=== PATIENT | male | born 1935 | race Caucasian/White ===

== ENCOUNTER 2019-03-22 14:03 | Inpatient (IN) ==
[2019-03-22 15:53] LABS: Bilirubin,Urine Moderate (Negative); Blood,Urine Small (Negative); Clarity,Urine Turbid (Clear); Color,Urine Orange (Yellow); Glucose,Urine (UA) Normal (Normal); Hyaline Casts,Urine Few per lpf (None-Few); Leukocyte Esterase,Urine Small (Negative); Nitrite,Urine Positive (Negative); Protein,Urine 30 mg/dL (Neg-Trace); Specific Gravity,Urine 1.025 (1.010-1.025); Urobilinogen,Urine Normal (Normal); WBC,Urine 0-3 per hpf (0-3)
[2019-03-22 15:55] LABS: Ketones,Urine Trace mg/dL (Negative)
[2019-03-22 16:03] LABS: Basophils # 0.1 K/mcL (0.0-0.2); Basophils % 0.8 %; Hematocrit 41.8 % (37.5-50.1); Immature Granulocytes % 0.3 % (0-4); Lymphocytes # 0.7 K/mcL (0.6-4.6); Lymphocytes % 6.3 %; Mean Corpuscular HGB Conc 35.9 g/dL (31.6-35.5); Mean Corpuscular Hemoglobin 31.3 pg (28.0-33.3); Mean Corpuscular Volume 87.1 fL (83.0-100.0); Mean Platelet Volume 9.5 fL (9.4-12.4); Monocytes # 0.4 K/mcL (0.0-1.3); Monocytes % 3.7 %; Neutrophils # 10.5 K/mcL (1.6-8.9); Nucleated Red Blood Cells 0.2 /100 WBC (0); Platelet Count 246 K/mcL (140-400); Red Cell Distribution Width 14.7 % (11.5-14.5); Segmented Neutrophils % 88.9 %; White Blood Count 11.8 K/mcL (4.3-11.1)
[2019-03-22 16:28] LABS: Albumin 3.3 g/dL (3.5-5.7); Bilirubin,Total 2.9 mg/dL (0.3-1.0); Calcium 9.1 mg/dL (8.6-10.3); Globulin 3.4 g/dL (2.4-3.5); Magnesium 2.4 mg/dL (1.6-2.6); Potassium 4.8 mEq/L (3.5-5.1); Total Protein 6.7 g/dL (6.4-8.9); Troponin I 0.07 ng/mL (< 0.04)
[2019-03-22 16:29] LABS: INR 1.2; Prothrombin Time 13.4 Seconds (9.4-12.1)
[2019-03-22] MEDS ORDERED: cefTRIAXone 1,000 MG in Water for inj. (sterile) 10 ML IVP ONE (16:34)
[2019-03-22] MEDS ORDERED: MetroNIDAZOLE 500 MG/100 ML 500 MG/100 ML BAG IVPB ONE (16:34)
[2019-03-22] MEDS ORDERED: 0.9 % Sodium Chloride 1,000 ML IVC ONE (16:35)
[2019-03-22 16:42] LABS: Squamous Epithelial Cell,Urine Few per lpf (None-Few)
[2019-03-22 16:43] LABS: Amorphous Sediment,Urine Few (Few); Granular Casts,Urine Few per lpf (None Seen); RBC,Urine 0-3 per hpf (0-3)
[2019-03-22 16:44] LABS: Bacteria,Urine Few per hpf (None-Few)
[2019-03-22 16:51] LABS: Platelet Estimate Normal (Normal)
[2019-03-22 16:53] LABS: Thyroid Stimulating Hormone 1.874 mcIU/mL (0.340-5.600)
[2019-03-22] MEDS ORDERED: Naloxone 0.4 MG/ML INJ IVP PRN (17:41)
[2019-03-22] MEDS ORDERED: *HR* HYDROcodone/Acet 5/325 mg TABLET PO PRN (17:41)
[2019-03-22] MEDS ORDERED: Ringers Solution, Lactated 1,000 ML IVC SCH (17:45)
[2019-03-22] MEDS ORDERED: Albuterol 2.5 MG/3 ML NEBULIZER IH PRN (17:48)
[2019-03-22] MEDS ORDERED: 0.9 % Sodium Chloride 500 ML IVC ONE (18:44)
[2019-03-22] MEDS: Piperacillin/Tazobactam 3.375 GM in 0.9 % Sodium Chloride Mini Bag 100 ML IVPB SCH (21:07)
[2019-03-22] MEDS: *HR* Heparin 5,000 UNIT/ML VIAL SQ SCH (21:08)
[2019-03-23] MEDS ORDERED: 0.9 % Sodium Chloride 500 ML IVC ONE ×2 (01:28→02:55)
[2019-03-23 03:41] LABS: Basophils % 0.3 %; Hematocrit 32.6 % (37.5-50.1); Hemoglobin 11.9 g/dL (12.9-16.9); Immature Granulocytes % 0.7 % (0-4); Lymphocytes # 1.2 K/mcL (0.6-4.6); Lymphocytes % 10.7 %; Mean Corpuscular HGB Conc 36.5 g/dL (31.6-35.5); Mean Corpuscular Volume 84.9 fL (83.0-100.0); Mean Platelet Volume 9.4 fL (9.4-12.4); Monocytes # 0.5 K/mcL (0.0-1.3); Monocytes % 4.5 %; Platelet Count 185 K/mcL (140-400); Red Blood Count 3.84 M/mcL (4.19-5.50); Red Cell Distribution Width 14.6 % (11.5-14.5); Segmented Neutrophils % 83.8 %; White Blood Count 11.3 K/mcL (4.3-11.1)
[2019-03-23 03:42] LABS: Neutrophils # 9.5 K/mcL (1.6-8.9)
[2019-03-23 03:57] LABS: Platelet Estimate Normal (Normal)
[2019-03-23 04:01] LABS: Albumin 2.6 g/dL (3.5-5.7); Calcium 7.7 mg/dL (8.6-10.3); Globulin 2.6 g/dL (2.4-3.5); Magnesium 2.2 mg/dL (1.6-2.6); Phosphorous 4.3 mg/dL (2.7-4.5); Potassium 3.7 mEq/L (3.5-5.1); Total Protein 5.2 g/dL (6.4-8.9)
[2019-03-23 04:41] LABS: Hepatitis B Surface Antigen Nonreactive (Nonreactive)
[2019-03-23 05:10] LABS: Hepatitis C Virus Antibody Nonreactive (Nonreactive)
[2019-03-23 05:11] LABS: Hepatitis B Core IgM Nonreactive (Nonreactive)
[2019-03-23 05:12] LABS: Hepatitis A Antibody IgM Nonreactive (Nonreactive)
[2019-03-23] MEDS: *HR* Heparin 5,000 UNIT/ML VIAL SQ SCH ×2 (05:59→17:10)
[2019-03-23] MEDS: Piperacillin/Tazobactam 3.375 GM in 0.9 % Sodium Chloride Mini Bag 100 ML IVPB SCH ×2 (06:00→17:22)
[2019-03-23] MEDS ORDERED: Ringers Solution, Lactated 1,000 ML IVC SCH (08:36)
[2019-03-23] MEDS: Pantoprazole 40 MG VIAL IVP SCH (11:36)
[2019-03-23] MEDS ORDERED: Dextrose Gel 15 GM/37.5 ML TUBE PO PRN ×2 (15:04)
[2019-03-23] MEDS ORDERED: D5% in Water 1,000 ML IVC PRN (15:04)
[2019-03-23] MEDS ORDERED: *HR* Dextrose 50 % in Water (Syg) 50 ML SYRINGE IVP PRN (15:04)
[2019-03-23] MEDS: D5% in Lactated Ringers 1,000 ML IVC SCH (15:47)
[2019-03-23] MEDS: Insulin LISPRO 300 UNITS/3 ML VIAL SQ SCH (17:11)
[2019-03-24] MEDS: Insulin LISPRO 300 UNITS/3 ML VIAL SQ SCH ×4 (00:57→17:54)
[2019-03-24 03:55] LABS: Hematocrit 30.2 % (37.5-50.1); Hemoglobin 11.2 g/dL (12.9-16.9); Mean Corpuscular Hemoglobin 31.5 pg (28.0-33.3); Mean Corpuscular Volume 84.8 fL (83.0-100.0); Mean Platelet Volume 9.9 fL (9.4-12.4); Platelet Count 178 K/mcL (140-400); Red Blood Count 3.56 M/mcL (4.19-5.50); Red Cell Distribution Width 14.6 % (11.5-14.5); White Blood Count 10.4 K/mcL (4.3-11.1)
[2019-03-24 04:00] LABS: Mean Corpuscular HGB Conc 37.1 g/dL (31.6-35.5)
[2019-03-24 04:18] LABS: Calcium 7.8 mg/dL (8.6-10.3); Magnesium 2.3 mg/dL (1.6-2.6); Phosphorous 3.7 mg/dL (2.7-4.5); Potassium 3.6 mEq/L (3.5-5.1)
[2019-03-24 05:06] LABS: Lymphocytes # 1.7 K/mcL (0.6-4.6); Monocytes # 0.2 K/mcL (0.0-1.3); Neutrophils # 8.5 K/mcL (1.6-8.9)
[2019-03-24 05:07] LABS: Platelet Estimate Normal (Normal)
[2019-03-24] MEDS: *HR* Heparin 5,000 UNIT/ML VIAL SQ SCH (06:38)
[2019-03-24] MEDS: Piperacillin/Tazobactam 3.375 GM in 0.9 % Sodium Chloride Mini Bag 100 ML IVPB SCH (06:42)
[2019-03-24] MEDS: Pantoprazole 40 MG VIAL IVP SCH (09:26)
[2019-03-24] MEDS: Cyanocobalamin (B-12) 1,000 MCG TABLET PO SCH (09:26)
[2019-03-24 10:25] LABS: Albumin 2.5 g/dL (3.5-5.7); Bilirubin,Total 1.8 mg/dL (0.3-1.0); Calcium 7.8 mg/dL (8.6-10.3); Globulin 2.4 g/dL (2.4-3.5); Potassium 3.6 mEq/L (3.5-5.1); Total Protein 4.9 g/dL (6.4-8.9)
[2019-03-24] MEDS ORDERED: Piperacillin/Tazobactam 3.375 GM in 0.9 % Sodium Chloride Mini Bag 100 ML IVPB SCH (16:00)
[2019-03-24] MEDS ORDERED: *HR* FentaNYL (PF) 100 MCG/2 ML VIAL ONE (16:09)
[2019-03-24] MEDS ORDERED: *HR* Propofol 200 MG/20 ML VIAL IVP ONE (16:09)
[2019-03-24] MEDS ORDERED: Lidocaine HCL 4 ML Topical Solution (Laryng-O-Jet Kit Sterile Pak) TP ONE (16:13)
[2019-03-24] MEDS ORDERED: *HR* Succinylcholine 200 MG/10 ML VIAL IVP ONE (16:13)
[2019-03-24] MEDS ORDERED: Lidocaine -MPF 2% 2 ML VIAL ONE (16:13)
[2019-03-24] MEDS ORDERED: Ondansetron 4 MG/2 ML VIAL ONE (16:13)
[2019-03-24] MEDS ORDERED: Indomethacin 50 MG SUPP.RECT RC ONE (17:12)
[2019-03-24] MEDS ORDERED: *HR* PHENYLEPHRINE 1,000 MCG/10 ML SYRINGE IVP ONE (17:25)
[2019-03-24] MEDS ORDERED: *HR* Metoprolol 5 MG/5 ML VIAL IVP PRN (19:51)
[2019-03-24] MEDS: Nystatin SUSP 5 ML UD.LIQ PO SCH (21:53)
[2019-03-24] MEDS: D5% in Lactated Ringers 1,000 ML IVC SCH (21:54)
[2019-03-25 05:07] LABS: Basophils % 0.1 %; Eosinophils # 0.2 K/mcL (0.0-0.6); Eosinophils % 1.6 %; Hematocrit 30.5 % (37.5-50.1); Hemoglobin 10.7 g/dL (12.9-16.9); Lymphocytes # 1.3 K/mcL (0.6-4.6); Mean Corpuscular HGB Conc 35.1 g/dL (31.6-35.5); Mean Corpuscular Hemoglobin 31.1 pg (28.0-33.3); Mean Corpuscular Volume 88.7 fL (83.0-100.0); Mean Platelet Volume 10.2 fL (9.4-12.4); Monocytes # 0.4 K/mcL (0.0-1.3); Platelet Count 157 K/mcL (140-400); Red Blood Count 3.44 M/mcL (4.19-5.50); Segmented Neutrophils % 73.3 %; White Blood Count 10.3 K/mcL (4.3-11.1)
[2019-03-25] MEDS: Insulin LISPRO 300 UNITS/3 ML VIAL SQ SCH ×3 (05:11→20:18)
[2019-03-25 05:14] LABS: Neutrophils # 7.6 K/mcL (1.6-8.9)
[2019-03-25] MEDS: Piperacillin/Tazobactam 3.375 GM in 0.9 % Sodium Chloride Mini Bag 100 ML IVPB SCH ×3 (05:18→22:21)
[2019-03-25 05:26] LABS: Albumin 2.5 g/dL (3.5-5.7); Albumin/Globulin Ratio 1.1 (1.1-2.2); Bilirubin,Direct 0.7 mg/dL (0.0-0.2); Bilirubin,Total 1.7 mg/dL (0.3-1.0); Calcium 8.1 mg/dL (8.6-10.3); Globulin 2.3 g/dL (2.4-3.5); Potassium 3.8 mEq/L (3.5-5.1); Total Protein 4.8 g/dL (6.4-8.9)
[2019-03-25 05:27] LABS: Magnesium 2.1 mg/dL (1.6-2.6); Phosphorous 4.4 mg/dL (2.7-4.5)
[2019-03-25 06:01] LABS: Platelet Estimate Normal (Normal); Reactive Lymphocytes Present (Not Present)
[2019-03-25] MEDS: Cyanocobalamin (B-12) 1,000 MCG TABLET PO SCH (10:16)
[2019-03-25] MEDS: Nystatin SUSP 5 ML UD.LIQ PO SCH ×4 (10:16→20:33)
[2019-03-25] MEDS ORDERED: *HR* FentaNYL (PF) 100 MCG/2 ML VIAL ONE (17:23)
[2019-03-25] MEDS ORDERED: *HR* Propofol 200 MG/20 ML VIAL IVP ONE (17:23)
[2019-03-25] MEDS ORDERED: Lidocaine -MPF 2% 2 ML VIAL ONE (17:24)
[2019-03-25] MEDS ORDERED: *HR* Succinylcholine 200 MG/10 ML VIAL IVP ONE (17:24)
[2019-03-25] MEDS ORDERED: *HR* Rocuronium Bromide 50 MG/5 ML VIAL ONE (17:24)
[2019-03-25] MEDS ORDERED: Lidocaine HCL 4 ML Topical Solution (Laryng-O-Jet Kit Sterile Pak) TP ONE (17:31)
[2019-03-25] MEDS ORDERED: Bupivacaine/EPI 1:200k 0.5%PF 30 ML VIAL ONE (17:43)
[2019-03-25] MEDS ORDERED: Morphine Sulfate 2 MG/ML SYRINGE IVP PRN (17:44)
[2019-03-25] MEDS ORDERED: Ondansetron 4 MG/2 ML VIAL IVP ONE (17:44)
[2019-03-25] MEDS ORDERED: *HR* Metoprolol 5 MG/5 ML VIAL IVP ONE (18:17)
[2019-03-25] MEDS ORDERED: Acetaminophen IV 1,000 MG/100 ML INFUS..BTL ONE (18:38)
[2019-03-25] MEDS ORDERED: *HR* OxyCODONE Immed Rel 5 MG TABLET PO ONE (19:32)
[2019-03-25] MEDS: *HR* Heparin 5,000 UNIT/ML VIAL SQ SCH (20:19)
[2019-03-25] MEDS: D5% in Lactated Ringers 1,000 ML IVC SCH (20:30)
[2019-03-25] MEDS ORDERED: 0.9 % Sodium Chloride 500 ML IVC ONE (22:16)
[2019-03-25] MEDS ORDERED: D5% in Water 1,000 ML IVC PRN (22:34)
[2019-03-25] MEDS ORDERED: *HR* Dextrose 50 % in Water (Syg) 50 ML SYRINGE IVP PRN (22:34)
[2019-03-25] MEDS ORDERED: D5% in Lactated Ringers 1,000 ML IVC SCH (22:34)
[2019-03-25] MEDS ORDERED: *HR* Metoprolol 5 MG/5 ML VIAL IVP PRN (22:34)
[2019-03-25] MEDS ORDERED: Albuterol 2.5 MG/3 ML NEBULIZER IH PRN (22:34)
[2019-03-25] MEDS ORDERED: Naloxone 0.4 MG/ML INJ IVP PRN (22:34)
[2019-03-25] MEDS ORDERED: Dextrose Gel 15 GM/37.5 ML TUBE PO PRN ×2 (22:34)
[2019-03-26] MEDS: Insulin LISPRO 300 UNITS/3 ML VIAL SQ SCH ×4 (00:57→18:02)
[2019-03-26] MEDS: 0.9 % Sodium Chloride 500 ML IVC ONE ×2 (02:17→03:35)
[2019-03-26 02:49] LABS: Hematocrit 31.3 % (37.5-50.1); Hemoglobin 11.1 g/dL (12.9-16.9); Mean Corpuscular HGB Conc 35.5 g/dL (31.6-35.5); Mean Corpuscular Volume 87.4 fL (83.0-100.0); Mean Platelet Volume 10.4 fL (9.4-12.4); Platelet Count 163 K/mcL (140-400); Red Blood Count 3.58 M/mcL (4.19-5.50); White Blood Count 13.5 K/mcL (4.3-11.1)
[2019-03-26 03:58] LABS: Lymphocytes # 1.6 K/mcL (0.6-4.6); Monocytes # 0.5 K/mcL (0.0-1.3); Neutrophils # 10.5 K/mcL (1.6-8.9); Platelet Estimate Normal (Normal); Toxic Granulation Present (Not Present)
[2019-03-26] MEDS: Acetaminophen IV 1,000 MG/100 ML INFUS..BTL IVPB SCH ×4 (04:58→18:12)
[2019-03-26] MEDS: *HR* Heparin 5,000 UNIT/ML VIAL SQ SCH ×2 (05:31→18:11)
[2019-03-26] MEDS: Piperacillin/Tazobactam 3.375 GM in 0.9 % Sodium Chloride Mini Bag 100 ML IVPB SCH ×3 (05:31→21:31)
[2019-03-26] MEDS ORDERED: Albumin 25% 25gram/100mL 25 GM/100 ML IV.SOLN IVPB ONE (07:50)
[2019-03-26] MEDS: Cyanocobalamin (B-12) 1,000 MCG TABLET PO SCH (09:55)
[2019-03-26] MEDS: Nystatin SUSP 5 ML UD.LIQ PO SCH ×4 (11:10→20:34)
[2019-03-27] MEDS: Acetaminophen IV 1,000 MG/100 ML INFUS..BTL IVPB SCH ×4 (01:03→17:32)
[2019-03-27] MEDS: Insulin LISPRO 300 UNITS/3 ML VIAL SQ SCH (01:03)
[2019-03-27] MEDS ORDERED: Hydrocortisone Rectal 2.5% CRM 28 GM TUBE RC PRN (01:58)
[2019-03-27 03:57] LABS: Hemoglobin 10.5 g/dL (12.9-16.9); Mean Corpuscular HGB Conc 33.9 g/dL (31.6-35.5); Mean Corpuscular Hemoglobin 30.8 pg (28.0-33.3); Mean Corpuscular Volume 90.9 fL (83.0-100.0); Mean Platelet Volume 10.8 fL (9.4-12.4); Platelet Count 192 K/mcL (140-400); Red Blood Count 3.41 M/mcL (4.19-5.50); Red Cell Distribution Width 15.2 % (11.5-14.5); White Blood Count 14.5 K/mcL (4.3-11.1)
[2019-03-27 04:06] LABS: BUN/Creatinine Ratio 38 (6-26); Blood Urea Nitrogen 41 mg/dL (8-23); Calcium 7.9 mg/dL (8.6-10.3); Carbon Dioxide 17 mEq/L (23-29); Chloride 116 mEq/L (98-107); Glucose 105 mg/dL (70-105); Magnesium 1.7 mg/dL (1.6-2.6); Osmolality,Calculated 304 (280-300); Phosphorous 2.7 mg/dL (2.7-4.5); Potassium 3.8 mEq/L (3.5-5.1); Sodium 142 mEq/L (136-145); eGFR For African Americans > 60 (> 60); eGFR For Non-African Americans > 60 (> 60)
[2019-03-27 04:40] LABS: Eosinophils # 0.3 K/mcL (0.0-0.6); Lymphocytes # 1.7 K/mcL (0.6-4.6); Neutrophils # 12.5 K/mcL (1.6-8.9)
[2019-03-27 04:41] LABS: Platelet Estimate Normal (Normal); Reactive Lymphocytes Present (Not Present)
[2019-03-27] MEDS: *HR* Heparin 5,000 UNIT/ML VIAL SQ SCH ×2 (06:03→17:42)
[2019-03-27] MEDS: Piperacillin/Tazobactam 3.375 GM in 0.9 % Sodium Chloride Mini Bag 100 ML IVPB SCH ×3 (06:03→22:06)
[2019-03-27] MEDS: *HR* OxyCODONE/APAP 5/325 TABLET PO PRN ×2 (09:04→15:20)
[2019-03-27] MEDS: Nystatin SUSP 5 ML UD.LIQ PO SCH ×4 (09:06→20:43)
[2019-03-27] MEDS: Cyanocobalamin (B-12) 1,000 MCG TABLET PO SCH (09:06)
[2019-03-27 14:24] LABS: INR 1.4; Prothrombin Time 15.5 Seconds (9.4-12.1)
[2019-03-27] MEDS ORDERED: Isovue-370 500 ML BOTTLE IVP ONE (16:48)
[2019-03-28 03:40] LABS: Hematocrit 32.8 % (37.5-50.1); Hemoglobin 11.5 g/dL (12.9-16.9); Mean Corpuscular HGB Conc 35.1 g/dL (31.6-35.5); Mean Corpuscular Hemoglobin 31.1 pg (28.0-33.3); Mean Corpuscular Volume 88.6 fL (83.0-100.0); Mean Platelet Volume 10.5 fL (9.4-12.4); Platelet Count 238 K/mcL (140-400); Red Cell Distribution Width 15.4 % (11.5-14.5); White Blood Count 17.2 K/mcL (4.3-11.1)
[2019-03-28 04:06] LABS: BUN/Creatinine Ratio 34 (6-26); Blood Urea Nitrogen 33 mg/dL (8-23); Calcium 8.1 mg/dL (8.6-10.3); Carbon Dioxide 17 mEq/L (23-29); Chloride 111 mEq/L (98-107); Glucose 106 mg/dL (70-105); Magnesium 1.6 mg/dL (1.6-2.6); Osmolality,Calculated 290 (280-300); Phosphorous 2.5 mg/dL (2.7-4.5); Potassium 3.9 mEq/L (3.5-5.1); Sodium 136 mEq/L (136-145); eGFR For African Americans > 60 (> 60); eGFR For Non-African Americans > 60 (> 60)
[2019-03-28 04:07] LABS: Lymphocytes # 1.7 K/mcL (0.6-4.6); Monocytes # 1.4 K/mcL (0.0-1.3); Neutrophils # 14.1 K/mcL (1.6-8.9); Platelet Estimate Normal (Normal); Reactive Lymphocytes Present (Not Present)
[2019-03-28 04:08] LABS: Anisocytosis 1+ (Not Present)
[2019-03-28] MEDS: Piperacillin/Tazobactam 3.375 GM in 0.9 % Sodium Chloride Mini Bag 100 ML IVPB SCH ×3 (05:34→21:30)
[2019-03-28] MEDS: *HR* Heparin 5,000 UNIT/ML VIAL SQ SCH ×2 (05:35→17:06)
[2019-03-28] MEDS: Cyanocobalamin (B-12) 1,000 MCG TABLET PO SCH (08:49)
[2019-03-28] MEDS: Nystatin SUSP 5 ML UD.LIQ PO SCH ×4 (08:49→21:19)
[2019-03-28] MEDS: *HR* OxyCODONE/APAP 5/325 TABLET PO PRN (12:09)
[2019-03-29 05:53] LABS: Hematocrit 32.3 % (37.5-50.1); Hemoglobin 11.2 g/dL (12.9-16.9); Mean Corpuscular HGB Conc 34.7 g/dL (31.6-35.5); Mean Corpuscular Hemoglobin 30.7 pg (28.0-33.3); Mean Corpuscular Volume 88.5 fL (83.0-100.0); Mean Platelet Volume 10.3 fL (9.4-12.4); Platelet Count 297 K/mcL (140-400); Red Blood Count 3.65 M/mcL (4.19-5.50); Red Cell Distribution Width 15.4 % (11.5-14.5); White Blood Count 16.6 K/mcL (4.3-11.1)
[2019-03-29] MEDS: Piperacillin/Tazobactam 3.375 GM in 0.9 % Sodium Chloride Mini Bag 100 ML IVPB SCH ×3 (06:00→22:10)
[2019-03-29 06:10] LABS: BUN/Creatinine Ratio 36 (6-26); Blood Urea Nitrogen 36 mg/dL (8-23); Calcium 7.9 mg/dL (8.6-10.3); Carbon Dioxide 18 mEq/L (23-29); Chloride 112 mEq/L (98-107); Glucose 95 mg/dL (70-105); Magnesium 1.7 mg/dL (1.6-2.6); Osmolality,Calculated 296 (280-300); Sodium 139 mEq/L (136-145); eGFR For African Americans > 60 (> 60); eGFR For Non-African Americans > 60 (> 60)
[2019-03-29 06:27] LABS: Monocytes # 0.3 K/mcL (0.0-1.3); Neutrophils # 13.9 K/mcL (1.6-8.9)
[2019-03-29 06:28] LABS: Platelet Estimate Normal (Normal)
[2019-03-29] MEDS: Cyanocobalamin (B-12) 1,000 MCG TABLET PO SCH (08:30)
[2019-03-29] MEDS: Nystatin SUSP 5 ML UD.LIQ PO SCH ×4 (08:31→21:11)
[2019-03-29] MEDS: *HR* Heparin 5,000 UNIT/ML VIAL SQ SCH ×2 (08:31→17:41)
[2019-03-29] MEDS: Lactobacillus 1 EACH CAP.SPRINK PO SCH (21:11)
[2019-03-30] MEDS ORDERED: Acetaminophen IV 1,000 MG/100 ML INFUS..BTL IVPB SCH (01:15)
[2019-03-30] MEDS ORDERED: Acetaminophen IV 1,000 MG/100 ML INFUS..BTL IVPB ONE (01:30)
[2019-03-30] MEDS: Piperacillin/Tazobactam 3.375 GM in 0.9 % Sodium Chloride Mini Bag 100 ML IVPB SCH (05:54)
[2019-03-30] MEDS: *HR* Heparin 5,000 UNIT/ML VIAL SQ SCH (05:56)
[2019-03-30 06:50] LABS: Basophils # 0.2 K/mcL (0.0-0.2); Eosinophils # 0.2 K/mcL (0.0-0.6); Hematocrit 32.1 % (37.5-50.1); Hemoglobin 11.2 g/dL (12.9-16.9); Immature Granulocytes % 6.6 % (0-4); Lymphocytes # 1.8 K/mcL (0.6-4.6); Lymphocytes % 11.5 %; Mean Corpuscular HGB Conc 34.9 g/dL (31.6-35.5); Mean Corpuscular Hemoglobin 30.9 pg (28.0-33.3); Mean Corpuscular Volume 88.7 fL (83.0-100.0); Monocytes % 6.2 %; Neutrophils # 11.6 K/mcL (1.6-8.9); Platelet Count 334 K/mcL (140-400); Red Blood Count 3.62 M/mcL (4.19-5.50); Red Cell Distribution Width 15.3 % (11.5-14.5); Segmented Neutrophils % 73.7 %; White Blood Count 15.7 K/mcL (4.3-11.1)
[2019-03-30 07:10] LABS: BUN/Creatinine Ratio 38 (6-26); Blood Urea Nitrogen 34 mg/dL (8-23); Calcium 7.9 mg/dL (8.6-10.3); Carbon Dioxide 18 mEq/L (23-29); Chloride 115 mEq/L (98-107); Glucose 111 mg/dL (70-105); Magnesium 1.6 mg/dL (1.6-2.6); Osmolality,Calculated 302 (280-300); Potassium 3.9 mEq/L (3.5-5.1); Sodium 142 mEq/L (136-145); eGFR For African Americans > 60 (> 60); eGFR For Non-African Americans > 60 (> 60)
[2019-03-30 07:11] LABS: Albumin 2.2 g/dL (3.5-5.7); Albumin/Globulin Ratio 0.9 (1.1-2.2); Bilirubin,Direct 0.4 mg/dL (0.0-0.2); Bilirubin,Indirect 0.7 mg/dL (0.0-1.0); Bilirubin,Total 1.1 mg/dL (0.3-1.0); Globulin 2.4 g/dL (2.4-3.5); Phosphorous 2.6 mg/dL (2.7-4.5); Total Protein 4.6 g/dL (6.4-8.9)
[2019-03-30 07:25] LABS: Platelet Estimate Normal (Normal); Reactive Lymphocytes Present (Not Present)
[2019-03-30] MEDS: Cyanocobalamin (B-12) 1,000 MCG TABLET PO SCH (09:31)
[2019-03-30] MEDS: Lactobacillus 1 EACH CAP.SPRINK PO SCH (09:31)
[2019-03-30] MEDS: Nystatin SUSP 5 ML UD.LIQ PO SCH ×2 (09:31→12:31)
[2019-03-30] MEDS ORDERED: Haloperidol Oral Conc 10 MG/5 ML UDC PO PRN (11:38)
[2019-03-30] MEDS ORDERED: Saliva Stimulant 100ml BOTTLE PO PRN (15:51)
[2019-03-31] MEDS: Morphine Sulfate Oral CONC 10 MG/0.5 ML ORAL.SYG SL PRN ×6 (01:58→15:23)
[2019-03-31] MEDS: *HR* LORazepam Oral Conc 2 MG/ML SL PRN (16:20)
[2019-04-01] MEDS: Morphine Sulfate Oral CONC 10 MG/0.5 ML ORAL.SYG SL PRN ×8 (01:58→19:43)
[2019-04-01] MEDS: *HR* LORazepam Oral Conc 2 MG/ML SL PRN ×4 (02:41→21:52)
[2019-04-01] MEDS: Haloperidol Oral Conc 10 MG/5 ML UDC PO SCH ×2 (14:28→15:20)
[2019-04-01] MEDS ORDERED: Atropine Sulfate 1% 40 DROP/2 ML BOTTLE SL PRN (21:13)
[2019-04-01] MEDS ORDERED: Scopolamine Patch 1.5 MG PATCH.TD72 TD ONE (21:14)
[2019-04-01] MEDS: Morphine Sulfate Oral CONC 10 MG/0.5 ML ORAL.SYG SL SCH (22:38)
[2019-04-02] MEDS: Morphine Sulfate Oral CONC 10 MG/0.5 ML ORAL.SYG SL SCH ×4 (01:34→10:27)
[2019-04-02] MEDS: *HR* LORazepam Oral Conc 2 MG/ML SL PRN (04:56)
[2019-04-02 06:58] VITALS: BP 93/64
== END 2019-04-02 12:09 | disposition hospice, inpatient (51) | DRG 854 ==
LOC: 2NENU 14:03 → EMEROOARM 14:03 → 2NENU 18:48 → SUATTDRO 03-23 11:59
PROVIDERS: ADMIT Internal Medicine; ATTEND Internal Medicine

== ENCOUNTER 2019-04-02 10:41 | Inpatient (IN) ==
[2019-04-02] MEDS ORDERED: Saliva Stimulant 100ml BOTTLE PO PRN (13:53)
[2019-04-02] MEDS ORDERED: Scopolamine Patch 1.5 MG PATCH.TD72 TD SCH (14:00)
[2019-04-02] MEDS ORDERED: Morphine Sulfate Oral CONC 10 MG/0.5 ML ORAL.SYG PO SCH ×3 (14:15→15:00)
[2019-04-02] MEDS: *HR* LORazepam Oral Conc 2 MG/ML PO PRN ×2 (14:20→20:14)
[2019-04-02] MEDS: Morphine Sulfate Oral CONC 10 MG/0.5 ML ORAL.SYG PO SCH ×4 (14:20→23:15)
[2019-04-02] MEDS: Atropine Sulfate 1% 40 DROP/2 ML BOTTLE SL PRN ×3 (18:05→23:21)
[2019-04-03] MEDS: Morphine Sulfate Oral CONC 10 MG/0.5 ML ORAL.SYG PO SCH ×7 (02:12→21:44)
[2019-04-03] MEDS ORDERED: Acetaminophen 650 MG RECTAL SUPP RC PRN (08:43)
[2019-04-03] MEDS: Atropine Sulfate 1% 40 DROP/2 ML BOTTLE SL PRN ×4 (10:04→21:45)
[2019-04-03] MEDS: *HR* LORazepam Oral Conc 2 MG/ML PO PRN ×4 (13:13→21:44)
[2019-04-03 20:42] VITALS: BP 113/75
== END 2019-04-04 00:50 | disposition expired | DRG 951 ==
LOC: 2NENU 12:11 → 2ANU 13:50
PROVIDERS: ADMIT Internal Medicine Hospice and Palliative Medicine; ATTEND Internal Medicine Hospice and Palliative Medicine